=== PATIENT | female | born 1975 | race Caucasian/White ===

== ENCOUNTER → 2023-11-16 10:58 | Outpatient (REF) | payer BC, SELFPAY | LOC: WDC 10:58 | PROVIDERS: ATTENDING PHYSICIAN Family Medicine | DX: Z12.31 Encounter for screening mammogram for malignant neoplasm of breast (principal) | CPT/HCPCS: 77063; 77067 ==

== ENCOUNTER → 2024-12-02 13:03 | Outpatient (REF) | payer BC, SELFPAY | LOC: HWRAD 13:03 | PROVIDERS: ATTENDING PHYSICIAN Family Medicine | DX: T07.XXXA Unspecified multiple injuries, initial encounter (principal); W19.XXXA Unspecified fall, initial encounter | CPT/HCPCS: 70486 ==

== ENCOUNTER → 2024-12-31 17:04 | Outpatient (REF) | payer BC, SELFPAY | LOC: RAD 17:04 | PROVIDERS: ATTENDING PHYSICIAN Family Medicine | DX: K11.8 Other diseases of salivary glands (principal) | CPT/HCPCS: 76536 ==